=== PATIENT | male | born 1970 | race Hispanic/Latino ===

== ENCOUNTER 2024-09-13 18:30 | Emergency (ER) | payer SELFPAY ==
[~2024-09-13] VITALS: Ht 175.3 cm; Wt 108.0 kg
--- NOTE | 2024-09-13 19:40 | ERN ---
General Chief Complaint: Hypertension Stated Complaint: HIGN BLOOD PRESSURE Time Seen by MD: 18:32 Time Seen by Midlevel: 18:32 Source: patient History of Present Illness Initial Comments Patient is a 54-year-old male presenting to the emergency department for evaluation with elevated blood pressure reading at home. Patient states he was feeling anxious in "[place]" so his decided to check his blood pressure and received a read of 145/102 they decided to present to the ER for further evaluation as they thought this blood pressure was high. On arrival the patient denies any chest pain, shortness of breath, headache, vision changes, or any other symptoms at this time. He does report having a history of anxiety and states he was normally anxious. Over the last couple of days his anxiety has worsened. He has not seen a primary care doctor for this issue since he no longer has health insurance. Denies any suicidal/homicidal ideation. Denies any auditory/visual hallucinations. Allergies: Coded Allergies: No Known Drug Allergies (Unverified Allergy, Unknown, 09/13/24) Past Medical History Past Medical History: No Pertinent History Past Surgical History: None ROS Dictation CONSTITUTIONAL: Negative except for HPI HEAD/FACE: Negative except for HPI EENT: Negative except for HPI RESPIRATORY: Negative except for HPI GASTROINTESTINAL/ABDOMINAL: Negative except for HPI GENITOURINARY: Negative except for HPI MUSCULOSKELETAL: Negative except for HPI INTEGUMENTARY: Negative except for HPI NEUROLOGICAL/PSYCH: Negative except for HPI HEMATOLOGIC/LYMPHATIC: Negative except for HPI All Systems Negative, Except as noted above. 13 point review of systems assessed and all negative except for above. Physical Exam Physical Exam Dictation Vital Signs reviewed General Appearance: Alert, oriented x 3, no acute distress, well developed, nourished. Head and Face: non-traumatic. Eyes: PERRL, pink conjunctivas, eyelid no trauma, anterior chamber with arcus senilis. Ears: Pinnas intact and no signs of trauma or erythema ear canals clear and no discharge TM no erythema Nose: No discharge, no bleeding. Oropharynx: Mouth normal, tongue pink, pharynx clear,no erythema, tonsils no exudates, no abscesses noted, mucous membrane moist Neck: Supple, non-tender, no thyromegaly, no masses, no JVD, no bruits Breast:Deferred Chest:No tenderness, no crepitus, no paradoxical movement, no retractions Lungs:Clear, well-ventilated, symmetric, no rales, no wheezing, no rhonchi, no stridor, good breath sounds bilaterally Heart: Regular rate, regular rhythm, no murmur, no gallops Vascular: no peripheral edema, Abdomen: Soft, positive bowel sounds, nondistended, no guarding, nontender, no rebound, no masses no hepatomegaly, no splenomegaly, no Chaudhry's sign, no hernias. Rectal: Deferred Genital: Deferred Neurological: Normal speech, motor function intact, sensory function intact Musculoskeletal: Neck nontender, full range of motion, back nontender, full range of motion, Extremities: nontender, full range of motion Skin: Color pink, dry, no turgor, no rash, no lacerations, no abrasions, no contusions. Lymphatic: Deferred MDM MDM: Patient is a 54-year-old male presenting to the emergency department for evaluation with elevated blood pressure reading at home. Patient states he was feeling anxious in "[place]" so his decided to check his blood pressure and received a read of 145/102 they decided to present to the ER for further evaluation as they thought this blood pressure was high. On arrival the patient denies any chest pain, shortness of breath, headache, vision changes, or any other symptoms at this time. He does report having a history of anxiety and states he was normally anxious. Over the last couple of days his anxiety has worsened. He has not seen a primary care doctor for this issue since he no longer has health insurance. Denies any suicidal/homicidal ideation. Denies any auditory/visual hallucinations. Physical examination is reassuring. [facility] l blood pressure is 137/94. Patient does report feeling slightly anxious. I offered him evaluation with butch but he was refusing to be seen and screened by butch at this time. He states he rather just follow up with his primary care doctor outpatient. He was just concerned that his blood pressure was slightly elevated. Patient was given hydroxyzine in the emergency department and will be discharged home. Blood pressure prior to discharge was 125/65. Differential diagnosis: Anxiety, hypertensive urgency, hypertensive emergency There are no social concerns with this patient. Prescription drug management Prescriptions will include: None Medical management and examination interpretation discussions were had by me with other qualified healthcare professionals as indicated for the patient's care. ED Course Orders Procedure Category Date Status Time Hydroxyzine 25mg Tab PHA 09/13/24 In Process (Atarax 25mg Tab) 20:00 Current Medications Medications (Trade) Dose Ordered Sig/Rosa Route PRN Reason Start Time Stop Time Status Last Admin Dose Admin Hydroxyzine HCl (ATArax 25MG TAB) 25 mg ONCE PO 09/13/24 20:00 09/13/24 23:59 09/13/24 20:11 Vital Signs Date Time Temp Pulse Resp B/P (MAP) Pulse Ox O2 Delivery O2 Flow Rate FiO2 09/13/24 19:40 98.6 102 20 137/94 100 Room Air* 0 21 09/13/24 18:41 98.4 102 20 137/94 100 Room Air 0 DX & DISP Disposition: Discharge Departure Impression: Primary Impression: Anxiety reaction Condition: Stable Referrals: SELF,REFERRAL (PCP) I have reviewed the case, and I agree with, Diagnosis and Plan I performed the substantive portion of the visit. I have reviewed and personally made and approve the management plan that is documented in the note by myself or the AYAD. I acknowledge for responsibility for the patient's management plan. DEE CANALES Sep 13, 2024 19:40
[2024-09-13] MEDS: hydrOXYzine 25 MG TABLET PO SCH (20:11)
[2024-09-13 20:16] VITALS: BP 125/65; PULSE 95; RESP 20; TEMP 98.6; O2SAT 100
== END 2024-09-13 20:17 | disposition home or self-care (01) ==
LOC: EDH 18:30
DX: F41.1 Generalized anxiety disorder (principal); I10 Essential (primary) hypertension
CPT/HCPCS: 99283